=== PATIENT | male | born 1990 | race Caucasian/White ===

== ENCOUNTER 2017-04-21 17:19 | Emergency (ER) | payer MEDICARE ==
[~2017-04-21] VITALS: Ht 152.4 cm; Wt 54.4 kg
--- NOTE | ~2017-04-21 | CR127 ---
[facility] A Service of [facility] RADIOLOGY TEXT RESULTS PATIENT: ANN CHANDLER LOCATION: [facility] : 91 UNIT #: [id number] AGE: [address]: WILLI ALBERTO APRN SEX: M ORDER DR: [id number] [facility]. [place], [place] [address] [id number] E MR#: [id number] Acc #: [id number] NAME: ANN CHANDLER : 1990 SEX: M STUDY DATE/TIME: 04/21/2017 18:59 UNIT: [facility] ROOM: STUDY DESCRIPTION: CR Foot Complete Min 3 View Rt Attending Physician: Willi Alberto Aprn Ordering Physician: Ed Doctor [id number] [facility] Primary Care Physician: Primary Care Physician No MEDICAL IMAGING REPORT This report is preliminary unless electronic signature is present EXAM Right foot 04/21/2017 INDICATION 26-year-old male with history of long-term symptoms, recent fall. Ankle pain and history of multiple surgeries and injuries. Foot pain. TECHNIQUE Three views of the right foot. No comparisons. FINDINGS Extensive surgical hardware present related to surgical hardware fracture repairs of the medial and lateral malleoli and calcaneus. 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 There are lucent fracture lines involving the posterior malleolus, lateral malleolus and to a lesser extent the medial malleolus. These are favored to represent chronic elements of nonunion related to prior fracture repair rather than acute fractures given lack of significant associated soft tissue swelling but this should be correlated clinically as we have no comparisons for this patient. Fifth metatarsal base intact. IMPRESSION 1. Extensive sequela of fracture repair involving the posterior lateral and medial malleoli and of the calcaneus. 2. Lucent fracture lines involving the medial, lateral and posterior malleoli probably reflecting sequela of nonunion from prior fracture repair rather than acute fractures for the reasons described above. However we have no comparison studies for better assessment of chronicity. 3. 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 Dictated by... [facility] A Service of [facility] RADIOLOGY TEXT RESULTS PATIENT: ANN CHANDLER LOCATION: [facility] : 91 UNIT #: [id number] AGE: [address]: WILLI ALBERTO APRN SEX: M ORDER DR: Cortez Aleman M.D. THIS IS AN ELECTRONICALLY VERIFIED REPORT Cortez Aleman M.D. at 04/22/2017 11:45 AM Avni TD: 04/22/2017 07:29 JOB #: [id number] MEDICAL IMAGING REPORT Page 1 of 1 COPY
--- NOTE | ~2017-04-21 | CR21 ---
[facility] A Service of [facility] RADIOLOGY TEXT RESULTS PATIENT: ANN CHANDLER LOCATION: [facility] : 91 UNIT #: [id number] AGE: [address]: WILLI ALBERTO APRN SEX: M ORDER DR: [id number] [facility]. [place], [place] [address] [id number] E MR#: [id number] Acc #: [id number] NAME: ANN CHANDLER : 1990 SEX: M STUDY DATE/TIME: 04/21/2017 18:57 UNIT: [facility] ROOM: STUDY DESCRIPTION: CR Ankle Min 3 Views Rt Attending Physician: Willi Alberto Aprn Ordering Physician: Er [facility] Primary Care Physician: Primary Care Physician No MEDICAL IMAGING REPORT This report is preliminary unless electronic signature is present EXAM Right ankle 04/21/2017 INDICATIONS Postop patient, pain, twisting injury today. Multiple surgeries. Recent fall. TECHNIQUE Three views of the right ankle. No comparisons. FINDINGS The patient is status post fracture repair of the medial and lateral malleoli and calcaneus. Surgical hardware is present and appears intact. There are lucent fracture lines through the distal third aspect of the fibula. These may represent chronic nonhealing fractures and are age indeterminate without prior studies for comparison. Lack of soft tissue swelling would argue against acute fracture deformities but this should be correlated clinically. There are also lucencies associated with the medial malleolus favored to represent chronic nonunion as well. 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 There is a fracture line involving the posterior malleolus as well. IMPRESSION 1. Extensive postop changes of the calcaneus and medial and lateral malleoli with surgical hardware present. 2. There are lucent fracture lines through the distal fibula, medial malleolus and posterior malleolus. Time course of these fractures is unclear without prior studies for comparison but these are favored to represent elements of nonunion with respect to prior fracture repair rather than acute fractures given lack of associated soft tissue [facility] A Service [facility] RADIOLOGY TEXT RESULTS PATIENT: ANN CHANDLER LOCATION: [facility] : 91 UNIT #: [id number] AGE: [address]: WILLI ALBERTO APRN SEX: M ORDER DR: rhiannon. This should be correlated clinically however. Comparison to prior studies would be helpful for further assessment characterization. 3. 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 Dictated by... Cortez Aleman M.D. THIS IS AN ELECTRONICALLY VERIFIED REPORT Cortez Aleman M.D. at 04/22/2017 11:45 AM Naman TD: 04/22/2017 07:09 JOB #: [id number] MEDICAL IMAGING REPORT Page 1 of 1 COPY
== END 2017-04-21 20:15 | disposition home or self-care (01) ==
LOC: CFTX 17:19 → CED 17:19 → CFTX 19:16
DX: G89.18 Other acute postprocedural pain (principal); G89.28 Other chronic postprocedural pain; M25.571 Pain in right ankle and joints of right foot
CPT/HCPCS: 29515; 73610; 73630; 99283

== ENCOUNTER 2017-05-14 19:28 | Emergency (ER) | payer MEDICARE ==
[~2017-05-14] VITALS: Ht 152.4 cm; Wt 54.4 kg
--- NOTE | ~2017-05-14 | CR21 ---
[facility] A Service of [facility] RADIOLOGY TEXT RESULTS PATIENT: ANN CHANDLER LOCATION: [facility] : 91 UNIT #: [id number] AGE: [address]: WILLI ALBERTO APRN SEX: M ORDER DR: [id number] [facility]. [place], [place] [address] [id number] E MR#: [id number] Acc #: [id number] NAME: ANN CHANDLER : 1990 SEX: M STUDY DATE/TIME: 05/14/2017 22:46 UNIT: [facility] ROOM: STUDY DESCRIPTION: CR Ankle Min 3 Views Rt Attending Physician: Willi Alberto Aprn Ordering Physician: Willi Alberto Aprn Primary Care Physician: Primary Care Physician No MEDICAL IMAGING REPORT This report is preliminary unless electronic signature is present EXAM Right ankle series 05/14/2017 HISTORY 26-year-old male 2 months postop ORIF surgery for ankle and hind foot fractures. He presents to the ED today after experiencing pain and irritation related to his cast. He removed his cast. TECHNIQUE Three-view right ankle series. FINDINGS Llcar-[id number]-[id number] fixation hardware traverses well-aligned fractures of the distal tibia and fibula. There is also lateral plate and screw fixation hardware traversing a complex fracture of the calcaneus. Immobilization osteoporosis is noted. No significant change since the previous study of 05/06/2017. No acute osseous abnormality is demonstrated. IMPRESSION ORIF distal tibia and fibula fractures and calcaneus fractures as noted. No change since 05/06/2017. Dictated by... Jarvis Alarcon M.D. THIS IS AN ELECTRONICALLY VERIFIED REPORT Jarvis Alarcon M.D. at 05/15/2017 9:45 PM RGW/janet TD: 05/15/2017 08:49 JOB #: [id number] [facility] A Service of [facility] RADIOLOGY TEXT RESULTS PATIENT: CHANDLER,ANN [id number] [birth year] UNIT #: [id number] AGE: [address]: WILLI ALBERTO APRN SEX: M ORDER DR: MEDICAL IMAGING REPORT Page 1 of 1 COPY
== END 2017-05-14 23:40 | disposition home or self-care (01) ==
LOC: CED 19:28 → CFTX 19:28
DX: L89.511 Pressure ulcer of right ankle, stage 1 (principal); F17.210 Nicotine dependence, cigarettes, uncomplicated; Z88.5 Allergy status to narcotic agent
CPT/HCPCS: 73610; 99283